=== PATIENT | male | born 1995 | race Caucasian/White ===

== ENCOUNTER 2021-11-26 13:17 | Emergency (ER) | payer OTHER ==
[~2021-11-26] VITALS: Ht 180.3 cm; Wt 95.3 kg
[2021-11-26 13:20] VITALS: BP 138/92
--- NOTE | 2021-11-26 13:22 | NUR ---
DR RASCON EVALUATING PT AT THIS TIME
--- NOTE | 2021-11-26 13:38 | NUR ---
PATIENT BIB [employer]. PATIENT EXAMINED BY DR. RASCON. PATIENT MEDICALLY CLEARED AND RELEASED IN CUSTODY IN STABLE CONDITION. ORIGINAL PRE-BOOK FORM GIVEN TO OFFICER SANTOSH. PT SEEN AND D/C BY DR RASCON, NO NURSING INTERVENTIONS PROVIDED
== END 2021-11-26 13:38 ==
LOC: MED 13:17
DX: R41.82 Altered mental status, unspecified (principal); R51.9 Headache, unspecified; Z02.89 Encounter for other administrative examinations; V98.8XXA Other specified transport accidents, initial encounter; Y93.89 Activity, other specified; Y92.89 Other specified places as the place of occurrence of the external cause; Y99.8 Other external cause status
CPT/HCPCS: 99283